=== PATIENT | male | born 1995 | race Caucasian/White ===

== ENCOUNTER 2018-10-03 20:37 | Emergency (ER) | payer OTHER ==
[~2018-10-03] VITALS: Ht 172.7 cm; Wt 71.4 kg
[2018-10-03 21:23] VITALS: BP 150/91; PULSE 98; RESP 18; Ht 172.7 cm; Wt 71.4 kg
[2018-10-04] MEDS ORDERED: D-ME118S24 PO (00:08)
[2018-10-04] MEDS ORDERED: AMOX500C2 PO (00:08)
--- NOTE | 2018-10-04 02:45 | ERD ---
ER Documentation Chief Complaint Chief Complaint achy throat x 1 week HPI 23-year-old male presents for sore throat times 1 week. He states that he has associated cough. Denies fevers or chills. He denies nausea vomiting or diarrhea. Patient has not tried any medications at home. ROS All systems reviewed and are negative except as per history of present illness. Medications Home Meds Active Scripts D-Methorphan Hb/P-Epd HCl/Bpm (Lmudujcfsy-Mpzhtedyrxg-Mr Syr) 118 Ml Syrup, 5 ML PO Q4H PRN for COUGH, #1 BOTTLE Prov:HAI EDWARDS DO 10/04/18 Amoxicillin* (Amoxicillin*) 500 Mg Cap, 500 MG PO BID for sinusitis for 5 Days, #10 CAP Prov:HAI EDWARDS DO 10/04/18 Allergies Allergies: Coded Allergies: No Known Allergy (Unverified , 10/03/18) PMhx/Soc Medical and Surgical Hx: pt denies Medical Hx, pt denies Surgical Hx Hx Alcohol Use: Yes Hx Substance Use: Yes Hx Tobacco Use: Yes Smoking Status: Current every day smoker Physical Exam Vitals Vital Signs Date Temp Pulse Resp B/P (MAP) Pulse Ox O2 O2 Flow FiO2 Time Delivery Rate 10/03/18 97.7 98 18 150/91 96 21:23 (110) Physical Exam Const: No acute distress Head: Atraumatic, there is frontal and sinus tenderness to palpation. Eyes: Normal Conjunctiva ENT: Normal External Ears, bilateral tympanic membrane intact without erythema or swelling noted, Nose and Mouth examination normal, no tonsillar exudate or swelling Neck: Full range of motion. No meningismus. Resp: Clear to auscultation bilaterally, no wheezing Cardio: Regular rate and rhythm, no murmurs Skin: No petechiae or rashes Ext: No cyanosis, or edema Neur: Awake and alert Psych: Normal Mood and Affect Procedures/MDM Medical Decision Making: Differential diagnosis includes but not limited to upper respiratory infection, pneumonia, sepsis, sinusitis. Patient appeared well on physical examination, nontoxic appearing. Lungs were clear to auscultation bilaterally. There is low suspicion for pneumonia, sepsis. There was paranasal and frontal sinus tenderness to palpation. Given his physical examination with history of sore throat and cough and given the length of time of symptoms patient will be given antibiotics. Patient given prescription for amoxicillin. Patient also given prescription for Bromfed Patient advised to follow up with PCP in 1-2 days. Patient advised to return to ED for new or worsening symptoms. Patient stable on discharge from the ED. Disclaimer: Inadvertent spelling and grammatical errors are likely due to EHR/dictation software use and do not reflect on the overall quality of patient care. Also, please note that the electronic time recorded on this note does not necessarily reflect the actual time of the patient encounter. Departure Diagnosis: Primary Impression: Sinusitis Condition: Fair Patient Instructions: Sinusitis, Abx Tx Referrals: [facility] YOU HAVE RECEIVED A MEDICAL SCREENING EXAM AND THE RESULTS INDICATE THAT YOU DO NOT HAVE A CONDITION THAT REQUIRES URGENT TREATMENT IN THE EMERGENCY DEPARTMENT. FURTHER EVALUATION AND TREATMENT OF YOUR CONDITION CAN WAIT UNTIL YOU ARE SEEN IN YOUR DOCTORS OFFICE WITHIN THE NEXT 1-2 DAYS. IT IS YOUR RESPONSIBILITY TO MAKE AN APPOINTMENT FOR FOLOW-UP CARE. IF YOU HAVE A PRIMARY DOCTOR --you should call your primary doctor and schedule an appointment IF YOU DO NOT HAVE A PRIMARY DOCTOR YOU CAN CALL OUR PHYSICIAN REFERRAL HOTLINE AT IF YOU CAN NOT AFFORD TO SEE A PHYSICIAN YOU CAN CHOSE FROM THE FOLLOWING [facility] [address] [facility]. [facility] [address] [facility]. [facility] [address] [facility] [facility] [address] [facility] [facility] [address] [facility]. [facility]. [address] Additional Instructions: Call your primary care doctor TOMORROW for an appointment during the next 1-2 days.See the doctor sooner or return here if your condition worsens before your appointment time. HAI EDWARDS DO Oct 04, 2018 02:45
== END 2018-10-04 00:47 | disposition home or self-care (01) ==
LOC: FTE 20:37
DX: J32.9 Chronic sinusitis, unspecified (principal); F17.210 Nicotine dependence, cigarettes, uncomplicated
CPT/HCPCS: 99283